=== PATIENT | male | born 1955 | race African-American/Black ===

== ENCOUNTER 2024-09-05 08:51 | Emergency (ER) | payer MEDICARE, SELFPAY ==
[2024-09-05 09:03] VITALS: BP 115/61; PULSE 103; RESP 14; TEMP 37.9; O2SAT 99
--- NOTE | 2024-09-05 09:22 | ED.URI ---
HPI - URI/Sore Throat General Chief Complaint: Upper Respiratory Infection Stated Complaint: Neck Pain/Left Arm Pain/Cough Source: patient and RN notes reviewed Mode of arrival: ambulatory Limitations: no limitations History of Present Illness HPI Narrative: 69 y/o male with HTN, DM presented for c/o body aches to the neck and arms, generalized weakness, nasal congestion, cough, subjective fever, and occasional heart racing. Onset yesterday. States the left arm pain yesterday has improved, he says he raised the arm a few times to help the pain. States all symptoms 'come and go.' Taking Tylenol. Pt is currently taking Bactrim for 'infection inside the penis.' Following with urology. Says blood sugars are 120-140s. Denies sob, wheezing, n/v/d. Pt also states he has been to the ER 3 times already this year for other unrelated symptoms. MD elicited complaint: cough Related Data Home Medications ?Medication ?Instructions ?Recorded ?Confirmed ?Last Taken ?Type amlodipine 10 mg tablet 10 mg PO DAILY 09/05/24 Unknown History gabapentin 800 mg tablet 800 mg PO DAILY 09/05/24 Unknown History hydralazine 25 mg tablet 25 mg PO Q12H 09/05/24 Unknown History metoprolol tartrate 100 mg tablet 100 mg PO BID 09/05/24 Unknown History pravastatin 20 mg tablet 20 mg PO DAILY 09/05/24 Unknown History semaglutide 14 mg tablet (Rybelsus) 14 mg PO DAILY 09/05/24 Unknown History sulfamethoxazole 800 1 tablet PO Q12H 09/05/24 Unknown History mg-trimethoprim 160 mg tablet tamsulosin 0.4 mg capsule (Flomax) 0.4 mg PO DAILY 09/05/24 Unknown History Allergies Allergy/AdvReac Type Severity Reaction Status Date / Time pregabalin AdvReac Unknown Dizziness Verified 09/05/24 09:17 Review of Systems Review of Systems: CONSTITUTIONAL: Endorses malaise, chills, fever EYES: Denies visual changes, redness, or discharge ENT: Reports rhinorrhea, congestion, denies sinus pain, otalgia, sore throat CARDIOVASCULAR: Denies chest pain, reports occasional palpitations RESPIRATORY: Reports cough, Denies dyspnea GASTROINTESTINAL: Denies abdominal pain, nausea, vomiting, diarrhea ; denies dysuria, frequency, urgency, hematuria, flank pain SKIN: Denies rash MUSCULOSKELETAL: Endorses myalgia NEUROLOGIC: Denies headache [facility] Past Medical History Medical History (Updated 09/05/24 @ 09:47 by Yana Ferro APRN) HTN (hypertension) Diabetes Exam Narrative: GENERAL: mildly Ill-appearing, nontoxic no acute distress. EYES: PERRLA, conjunctivae clear ENT: Mucous membranes moist. TMs pearly colin with dull light reflex bilaterally; no tragal tenderness. no drooling, no hoarseness, no trismus, uvula midline. No tripod positioning, muffled voice, soft palate or pharyngeal wall bulging NECK: Supple. No lymphadenopathy CHEST: Clear to auscultation, breath sounds equal. No wheezing, rhonchi, rales, or stridor. No respiratory distress, speaks in full sentences. HEART: Regular rate and rhythm. No murmur heard. SKIN: Warm, dry MUSC: Full ROM To BUE's. CMS intact. NEURO: Alert and oriented x3. PSYCH: Normal mood and affect Course Course Emergency Course: Patient is aware of diagnosis, understands and agrees to treatment plan. Anticipatory guidance given. Patient agrees to follow-up as directed and is aware of reasons to seek care at the emergency department. Portions of this record may have been created with voice recognition software Level of Care: Express Care Visit Vital Signs Vital signs: Vital Signs Temperature 100.2 F H 09/05/24 09:03 Pulse Rate 103 H 09/05/24 09:03 Respiratory Rate 14 09/05/24 09:03 Blood Pressure 115/61 09/05/24 09:03 Pulse Oximetry 99 09/05/24 09:03 Oxygen Delivery Room Air 09/05/24 09:03 Temperature 100.2 F H 09/05/24 09:03 Pulse Rate 103 H 09/05/24 09:03 Respiratory Rate 14 09/05/24 09:03 Blood Pressure 115/61 09/05/24 09:03 Pulse Oximetry 99 09/05/24 09:03 Oxygen Delivery Room Air 09/05/24 09:03 reviewed MDM - URI/Sore Throat MDM Narrative Medical decision making narrative: Discussed physical exam findings; Negative flu and COVID. Reviewed EKG with patient; NSR 85. Advised supportive measures and signs/symptoms to go to the ER at length. Pt is appropriate for outpt treatment and f/u with pcp. Differential Diagnosis Differential diagnosis: Likely upper respiratory infection, sinusitis, viral infection, bronchitis, influenza and pharyngitis ECG Data EKG #1: Attestation: I personally reviewed and interpreted this ECG as follows: (SR 85, ME 150 QRS 154 QT/QTC 390/432) ECG completion date: 09/05/24 ECG completion time: 09:43 Prior ECG tracings: not available for review EKG Interpretation: normal rate, sinus rhythm and RBBB Discharge Plan Discharge Clinical Impression: Viral infection Patient Disposition: Home, Self-Care Condition: Stable Instructions: Antibiotic Form, Viral Syndrome (ED) Additional Instructions: Influenza negative. Your rapid covid test was negative today. It may be too early to detect a virus, therefore we recommend retesting at home in 1-2 days Continue to follow general precautions: frequent handwashing, wear a mask, isolate/social distance, and avoid crowds if you have a fever. You must be fever free for 24 hours without the use of fever reducing medication (Tylenol/ibuprofen) before returning to work/school/crowds. Follow up with your primary care provider as needed in 3 days Go to the ER for worsening symptoms or concerns Patient Language: Com[place] Prescriptions: No Action sulfamethoxazole-trimethoprim 800-160 mg tablet 1 tablet PO Q12H hydralazine 25 mg tablet 25 mg PO Q12H Rybelsus 14 mg tablet 14 mg PO DAILY pravastatin 20 mg tablet 20 mg PO DAILY metoprolol tartrate 100 mg tablet 100 mg PO BID amlodipine 10 mg tablet 10 mg PO DAILY gabapentin 800 mg tablet 800 mg PO DAILY tamsulosin [Flomax] 0.4 mg capsule 0.4 mg PO DAILY Follow-up/Referrals: Adela,EMILY Garcia [Primary Care Provider] - Stand Alone Forms: Work/School Release IP
--- NOTE | 2024-09-05 09:37 | ECG_ITS ---
Test Date: 2024-09-05 09:43:23 Measurements Intervals [place] Rate: 85 P: 62 NH: 150 QRS: -5 QRSD: 154 T: -28 QT: 390 QTc: 464 Interpretive Statements SINUS RHYTHM RIGHT BUNDLE BRANCH BLOCK [120+ ms QRS DURATION, UPRIGHT V1, 40+ ms S IN I/aVL/V4/V5/V6] WARNING: DATA QUALITY MAY AFFECT INTERPRETATION No previous ECG available for comparison Electronically Signed On 09-06-2024 16:23:31 CARE PROGRAM DIRECTOR by Sanket Blanc M.D.
[2024-09-05 09:48] LABS: EDCOVIDSCREEN Negative (Negative); EDINFLUASCREEN Negative (Negative); EDINFLUBSCREEN Negative (Negative)
== END 2024-09-05 09:50 | disposition home or self-care (01) ==
PROVIDERS: Emergency Provider Nurse Practitioner Family; PCP Nurse Practitioner Family
DX: B34.9 Viral infection, unspecified (principal); I10 Essential (primary) hypertension; E11.9 Type 2 diabetes mellitus without complications; Z79.899 Other long term (current) drug therapy; Z20.822 Contact with and (suspected) exposure to COVID-19
CPT/HCPCS: 87426; 87804; 93005; 99213; G0463